=== PATIENT | male | born 1965 | race African-American/Black ===

== ENCOUNTER 2022-04-19 12:31 | Observation (INO) | payer OTHER ==
[2022-04-19] MEDS ORDERED: ACETAMINOPHEN 325 MG TABLET (FP) PO ONE (14:16)
[2022-04-19 14:40] LABS: INR 0.9 (0.83-1.09); PROTHROMBIN TIME (PATIENT) 10.4 SEC (9.7-13.0)
[2022-04-19 14:43] LABS: ACTIVATED PTT 29.5 SECONDS (25.2-36.5)
[2022-04-19 14:48] LABS: CHLORIDE 96 mmol/L (98-107); SODIUM 132 mmol/L (136-145)
[2022-04-19 14:52] LABS: ALBUMIN 3.4 g/dl (3.4-5.0); ANION GAP 7 MMOL/L (8-16); BLOOD UREA NITROGEN 21.3 mg/dL (7-18); CALCIUM 9.1 mg/dL (8.5-10.1); CO2 29 mmol/L (21-32)
[2022-04-19 14:55] LABS: CREATININE 1.2 mg/dL (0.55-1.3)
[2022-04-19 14:56] LABS: SGPT/ALT 49 U/L (13-61)
[2022-04-19 14:57] LABS: BILIRUBIN,TOTAL 0.4 mg/dL (0.2-1); TOT PROT 6.7 g/dl (6.4-8.2)
[2022-04-19 14:58] LABS: ALK PHOS 86 U/L (45-117)
[2022-04-19 15:00] LABS: SGOT/AST 53 U/L (15-37)
[2022-04-19] MEDS ORDERED: ACETAMINOPHEN 325 MG TABLET (FP) ONE (15:03)
[2022-04-19 15:25] LABS: GLUCOSE,RANDOM 500 mg/dL (74-106)
[2022-04-19] MEDS ORDERED: SODIUM CHLORIDE 1,000 ML IV STA ×2 (15:52)
[2022-04-19 16:35] LABS: BASO % 0.3 % (0-2.0); EOS % 0.3 % (0-4.5); HEMATOCRIT 40.5 % (35.4-49); HEMOGLOBIN 14.7 GM/dL (11.7-16.9); MCH 31.5 pg (25.7-33.7); MCHC 36.2 g/dl (32.0-35.9); MEAN PLT VOLUME 9.5 fl (7.5-11.1); MONO % 6.3 % (3.8-10.2); NEUT % 84.1 % (42.8-82.8); PLATELET COUNT 187 10^3/uL (134-434); RBC 4.66 M/mm3 (4.00-5.60); RDW 12.8 % (11.9-15.9); WHITE BLOOD COUNT 9.1 K/mm3 (4.0-10.0)
[2022-04-19 19:30] LABS: CALCIUM 8.3 mg/dL (8.5-10.1)
[2022-04-19 19:31] LABS: BLOOD UREA NITROGEN 16.3 mg/dL (7-18)
[2022-04-19 19:34] LABS: CREATININE 0.9 mg/dL (0.55-1.3)
[2022-04-19] MEDS ORDERED: ACETAMINOPHEN 325 MG TABLET (FP) PO PRN (21:58)
[2022-04-19] MEDS ORDERED: PATIENT'S OWN MEDICATION (NON-FORMULARY) (Losartan/Hydrochlorothiazide [Losartan-Hctz 100- PO SCH (22:19)
[2022-04-19] MEDS ORDERED: ROSUVASTATIN CA 20 MG TABLET PO SCH (22:20)
[2022-04-19] MEDS ORDERED: metoPROLOL SUCCINATE 25 MG TAB.SR.24H (FP) PO SCH (22:20)
[2022-04-19] MEDS ORDERED: ASPIRIN 81 MG CHEWABLE TABLETS PO SCH (22:20)
[2022-04-19] MEDS ORDERED: INSULIN (LEVEMIR) 100 UNITS/ML UNITS SQ ONE (23:02)
[2022-04-19] MEDS ORDERED: LOSARTAN POTASSIUM 50 MG TABLET PO ONE (23:03)
[2022-04-19] MEDS: INSULIN SLIDING SCALE (NOVOLOG) 1 VIAL SQ SCH (23:16)
[2022-04-19] MEDS ORDERED: HYDROCHLOROTHIAZIDE 12.5 MG CAPSULE (FP) PO ONE (23:30)
[2022-04-20 01:04] VITALS: BMI 21.2
[2022-04-20] MEDS: INSULIN SLIDING SCALE (NOVOLOG) 1 VIAL SQ SCH ×2 (06:22→11:03)
[2022-04-20] MEDS ORDERED: INSULIN (LEVEMIR) 100 UNITS/ML UNITS SQ SCH (07:00)
[2022-04-20 08:42] LABS: CALCIUM 8.7 mg/dL (8.5-10.1)
[2022-04-20 09:11] LABS: BLOOD UREA NITROGEN 16.2 mg/dL (7-18); CREATININE 0.7 mg/dL (0.55-1.3)
[2022-04-20] MEDS ORDERED: [UNRECOGNIZED DRUG - OTHER] PO SCH (10:00)
[2022-04-20] MEDS ORDERED: METFORMIN HCL PO SCH (10:00)
[2022-04-20] MEDS ORDERED: ASPIRIN 81 MG CHEWABLE TABLETS PO SCH (10:00)
[2022-04-20] MEDS ORDERED: HYDROCHLOROTHIAZIDE 12.5 MG CAPSULE (FP) PO SCH (10:00)
[2022-04-20] MEDS ORDERED: LOSARTAN POTASSIUM 50 MG TABLET PO SCH (10:00)
[2022-04-20] MEDS ORDERED: EMPAGLIFLOZIN PO SCH (10:00)
[2022-04-20] MEDS ORDERED: metoPROLOL SUCCINATE 25 MG TAB.SR.24H (FP) PO SCH (10:00)
[2022-04-20] MEDS ORDERED: PATIENT'S OWN MEDICATION (NON-FORMULARY) (Losartan/Hydrochlorothiazide [Losartan-Hctz 100- PO SCH (10:00)
[2022-04-20 13:24] VITALS: BP 166/82; PULSE 88; RESP 18; TEMP 98.3
[2022-04-20] MEDS ORDERED: ROSUVASTATIN CA 20 MG TABLET PO SCH (22:00)
== END 2022-04-20 15:10 | disposition home or self-care (01) ==
LOC: JER 12:31 → JERBED 21:11 → J4W 04-20 00:41
PROVIDERS: ADMIT Internal Medicine; ATTEND Internal Medicine
PROC: 3E013VG Introduction of Insulin into Subcutaneous Tissue, Percutaneous Approach (ICD-10-PCS; principal; 2022-04-19)
PROC: 3E0337Z Introduction of Electrolytic and Water Balance Substance into Peripheral Vein, Percutaneous Approach (ICD-10-PCS; 2022-04-19)
DX: R07.9 Chest pain, unspecified (principal); E11.9 Type 2 diabetes mellitus without complications; I10 Essential (primary) hypertension; E78.5 Hyperlipidemia, unspecified; Y04.2XXA Assault by strike against or bumped into by another person, initial encounter; Y93.89 Activity, other specified; Y92.410 Unspecified street and highway as the place of occurrence of the external cause; R00.0 Tachycardia, unspecified
CPT/HCPCS: 36415; 71046-TC-FY; 80048; 80053; 82550; 82553; 82962; 83036; 84484; 85025; 85610; 85730; 93005; 93010; 96360; 96361; 96372; 99285-25; C9803-CS; G0378; U0003; U0005